=== PATIENT | female | born 1965 | race Caucasian/White ===

== ENCOUNTER 2018-12-04 22:27 | Inpatient (IN) | payer OTHER ==
[~2018-12-04] VITALS: Ht 172.7 cm; Wt 68.0 kg
[~2018-12-04 22:27] MED LIST: APOTEX; TRAM50TA3 PO
[2018-12-04] MEDS ORDERED: NITROGLYCERIN OINT 1GM/INCH UDPKT TD ONE (23:15)
[2018-12-04] MEDS ORDERED: ACETAMINOPHEN 325MG TABLET PO ONE (23:15)
[2018-12-04] MEDS ORDERED: CLONIDINE 0.2MG TABLET PO ONE (23:15)
[2018-12-04 23:19] LABS: BASOPHILS % 0.8 % (0.0-2.0); EOSINOPHILS % 2.6 % (0.0-5.0); HEMATOCRIT. 41.2 % (36.0-48.0); HEMOGLOBIN. 13.8 g/dL (12.0-16.0); LYMPHOCYTES % 34.2 % (20.0-50.0); MEAN CORPUSCULAR HEMOGLOBIN 29.6 pg (28.0-32.0); MEAN CORPUSCULAR VOLUME 88.6 fL (81.0-99.0); MEAN PLATELET VOLUME 8.9 fl (7.4-10.4); MONOCYTES % 6.9 % (2.0-8.0); NEUTROPHILS % 55.5 % (40.0-76.0); PLATELET 258 x1000/uL (130-400); RED BLOOD CELL COUNT 4.64 mill/uL (4.2-5.4); RED CELL DISTRIBUTION WIDTH 13.7 % (11.6-14.6)
[2018-12-04 23:22] LABS: CHLORIDE 106 mEq/L (98-107)
[2018-12-04 23:34] LABS: D-DIMER 0.89 mg/L FEU (<0.50); PARTIAL THROMBOPLASTIN TIME 28.9 sec (23.4-31.0)
[2018-12-05] MEDS ORDERED: ASPIRIN 325MG EC TABLET PO ONE (01:30)
[2018-12-05] MEDS ORDERED: ACETAMINOPHEN 325MG TABLET PO ONE (02:00)
[2018-12-05] MEDS ORDERED: ONDANSETRON HCL 4MG/2ML INJ IV ONE (02:00)
[2018-12-05] MEDS ORDERED: IOHEXOL-350 100 ML BOTTLE ONE (04:00)
[2018-12-05 10:11] LABS: LDL CHOLESTEROL 107 mg/dL (5-100)
[2018-12-05 10:13] LABS: HDL CHOLESTEROL 39 mg/dL (40-59)
[2018-12-05] MEDS ORDERED: ONDANSETRON HCL 4MG/2ML INJ IV PRN (10:30)
[2018-12-05] MEDS ORDERED: GUAIFENESIN-DM 200MG-20MG/10ML UDC PO PRN (10:30)
[2018-12-05 10:56] LABS: HEPATITIS B SURFACE ANTIGEN NEGATIVE
[2018-12-05 11:26] LABS: HEPATITIS A AB IGM NEGATIVE (NEGATIVE)
[2018-12-05] MEDS: ACETAMINOPHEN 325MG TABLET PO PRN (17:00)
[2018-12-06] MEDS: ACETAMINOPHEN 325MG TABLET PO PRN (03:45)
[2018-12-06 04:00] VITALS: BP 149/78
[2018-12-06 06:08] VITALS: BP 161/85
[2018-12-06 08:00] VITALS: BP 164/81
[2018-12-06] MEDS ORDERED: DIPH25TA23 PO (08:30)
[2018-12-06] MEDS ORDERED: LISI10TA5 PO (08:30)
[2018-12-06] MEDS ORDERED: ALBU18HF2 IH (08:31)
[2018-12-06 08:34] LABS: BASOPHILS % 0.6 % (0.0-2.0); EOSINOPHILS % 3.1 % (0.0-5.0); HEMATOCRIT. 40.8 % (36.0-48.0); HEMOGLOBIN. 13.8 g/dL (12.0-16.0); LYMPHOCYTES % 26.9 % (20.0-50.0); MEAN CORPUSCULAR HEMOGLOBIN 29.9 pg (28.0-32.0); MEAN CORPUSCULAR VOLUME 88.6 fL (81.0-99.0); MEAN PLATELET VOLUME 9.1 fl (7.4-10.4); MONOCYTES % 4.6 % (2.0-8.0); NEUTROPHILS % 64.8 % (40.0-76.0); PLATELET 232 x1000/uL (130-400); RED CELL DISTRIBUTION WIDTH 13.9 % (11.6-14.6)
[2018-12-06 08:41] LABS: CHLORIDE 106 mEq/L (98-107)
[2018-12-06] MEDS ORDERED: ASPIRIN 81MG TABLET PO SCH (09:00)
[2018-12-06] MEDS: CLONIDINE 0.1MG TABLET PO PRN (09:33)
[2018-12-06] MEDS ORDERED: IPRATROPIUM/ALBUTEROL 0.5-3(2.5)MG/3ML NEB HHN PRN (11:15)
[2018-12-06] MEDS: BENZONATATE 100MG CAPSULE PO SCH ×2 (11:40→18:36)
[2018-12-06] MEDS ORDERED: POTASSIUM CHLORIDE 20MEQ TABLET SR PO SCH (12:00)
[2018-12-06 14:00] VITALS: BP 141/78
[2018-12-06] MEDS: BUDESONIDE 0.5MG/2ML NEB HHN SCH (14:48)
[2018-12-06] MEDS: IPRATROPIUM/ALBUTEROL 0.5-3(2.5)MG/3ML NEB HHN SCH ×2 (14:48→19:59)
[2018-12-06 16:00] VITALS: BP 146/75
[2018-12-06 20:07] VITALS: BP 127/64
[2018-12-06] MEDS ORDERED: AMITRIPTYLINE 10MG TABLET PO SCH (21:00)
[2018-12-07 00:03] VITALS: BP 161/85
[2018-12-07] MEDS: BUDESONIDE 0.5MG/2ML NEB HHN SCH ×2 (01:23→09:48)
[2018-12-07] MEDS: IPRATROPIUM/ALBUTEROL 0.5-3(2.5)MG/3ML NEB HHN SCH ×3 (01:23→14:40)
[2018-12-07] MEDS: BENZONATATE 100MG CAPSULE PO SCH ×2 (02:41→12:01)
[2018-12-07 04:00] VITALS: BP 149/85
[2018-12-07 06:37] LABS: BASOPHILS % 0.6 % (0.0-2.0); EOSINOPHILS % 3.1 % (0.0-5.0); HEMATOCRIT. 40.1 % (36.0-48.0); HEMOGLOBIN. 13.5 g/dL (12.0-16.0); LYMPHOCYTES % 27.9 % (20.0-50.0); MEAN CORPUSCULAR HEMOGLOBIN 29.9 pg (28.0-32.0); MEAN CORPUSCULAR VOLUME 88.9 fL (81.0-99.0); MEAN PLATELET VOLUME 9.3 fl (7.4-10.4); NEUTROPHILS % 63.4 % (40.0-76.0); PLATELET 239 x1000/uL (130-400); RED BLOOD CELL COUNT 4.51 mill/uL (4.2-5.4); RED CELL DISTRIBUTION WIDTH 14.2 % (11.6-14.6)
[2018-12-07 07:29] LABS: CHLORIDE 108 mEq/L (98-107)
[2018-12-07 08:28] VITALS: BP 169/91
[2018-12-07] MEDS: CLONIDINE 0.1MG TABLET PO PRN (09:14)
[2018-12-07] MEDS: ACETAMINOPHEN 325MG TABLET PO PRN (09:14)
[2018-12-07 12:00] VITALS: BP 131/69
[2018-12-07 12:49] VITALS: BP 131/69
== END 2018-12-07 15:25 | disposition home or self-care (01) | DRG 199 ==
LOC: ER 22:27 → 6WST 12-05 07:07 → ENRESERV 12-06 02:45 → 6WST 12-06 04:00
PROVIDERS: ADMIT Internal Medicine; ATTEND Internal Medicine
DX: I16.0 Hypertensive urgency (principal); J96.00 Acute respiratory failure, unspecified whether with hypoxia or hypercapnia; M94.0 Chondrocostal junction syndrome [Tietze]; R04.2 Hemoptysis; I11.9 Hypertensive heart disease without heart failure; K76.0 Fatty (change of) liver, not elsewhere classified; I10 Essential (primary) hypertension; K76.9 Liver disease, unspecified; E87.6 Hypokalemia; R00.1 Bradycardia, unspecified; Z98.891 History of uterine scar from previous surgery; Z90.710 Acquired absence of both cervix and uterus; Z88.5 Allergy status to narcotic agent; Z79.899 Other long term (current) drug therapy
CPT/HCPCS: 36415; 70551; 71045; 71275; 80048; 80061; 83735; 83880; 84443; 84484; 85379; 86038; 86705; 86709; 86803; 87070; 87340; 87804; 93005; 93306; 96374; 97162; 99285; J2405; J7620; J7626; Q9967

== ENCOUNTER 2019-05-16 15:39 | Emergency (ER) | payer OTHER ==
[~2019-05-16] VITALS: Ht 152.4 cm; Wt 68.0 kg
[~2019-05-16 15:39] MED LIST changes: +ALBU18HF2 IH; -APOTEX; +DIPH25TA23 PO; +LISI10TA5 PO; -TRAM50TA3 PO
[2019-05-16] MEDS ORDERED: FAMOTIDINE 20MG/2ML VIAL IV STA (22:27)
[2019-05-16] MEDS ORDERED: KETOROLAC 30MG/ML VIAL IV STA (22:27)
[2019-05-16] MEDS ORDERED: ONDANSETRON HCL 4MG/2ML INJ IV STA (22:27)
[2019-05-16 23:06] LABS: BASOPHILS % 0.3 % (0.0-2.0); HEMATOCRIT. 41.6 % (36.0-48.0); HEMOGLOBIN. 14.3 g/dL (12.0-16.0); LYMPHOCYTES % 27.4 % (20.0-50.0); MEAN CORPUSCULAR HEMOGLOBIN 30.5 pg (28.0-32.0); MEAN CORPUSCULAR VOLUME 88.8 fL (81.0-99.0); MEAN PLATELET VOLUME 9.4 fl (7.4-10.4); MONOCYTES % 4.9 % (2.0-8.0); NEUTROPHILS % 65.4 % (40.0-76.0); PLATELET 269 x1000/uL (130-400); RED BLOOD CELL COUNT 4.69 mill/uL (4.2-5.4); RED CELL DISTRIBUTION WIDTH 13.9 % (11.6-14.6)
[2019-05-16 23:08] LABS: CHLORIDE 107 mEq/L (98-107); CLARITY URINE CLOUDY (CLEAR); COLOR URINE YELLOW (YELLOW); KETONES URINE TRACE (NEGATIVE); LEUKOCYTE ESTERASE URINE TRACE (NEGATIVE); NITRITE URINE NEGATIVE (NEGATIVE); OCCULT BLOOD URINE NEGATIVE (NEGATIVE); PH URINE 5.5 (4.5-8.0); PROTEIN URINE TRACE (NEGATIVE); SPECIFIC GRAVITY URINE 1.023 (1.005-1.030)
[2019-05-16 23:18] LABS: PROTHROMBIN TIME 10.6 sec (9.6-11.0)
[2019-05-17 00:59] VITALS: BP 164/96
== END 2019-05-17 01:00 | disposition home or self-care (01) ==
LOC: ER 15:39
DX: K29.00 Acute gastritis without bleeding (principal); N39.0 Urinary tract infection, site not specified; R79.89 Other specified abnormal findings of blood chemistry; I11.9 Hypertensive heart disease without heart failure; K76.9 Liver disease, unspecified; Z90.721 Acquired absence of ovaries, unilateral; Z90.710 Acquired absence of both cervix and uterus; Z98.890 Other specified postprocedural states; Z88.6 Allergy status to analgesic agent; Z79.899 Other long term (current) drug therapy
CPT/HCPCS: 36415; 76705; 80053; 81003; 83690; 85025; 85610; 96374; 96375; 99284; J1885; J2405; J3490

== ENCOUNTER 2021-05-08 09:13 | Emergency (ER) | payer OTHER ==
[~2021-05-08] VITALS: Ht 152.4 cm; Wt 62.0 kg
[~2021-05-08 09:13] MED LIST changes: +LISI10TA26 PO; -LISI10TA5 PO
[2021-05-08] MEDS ORDERED: ACETAMINOPHEN 325MG TABLET PO ONE (10:15)
[2021-05-08 10:25] LABS: EOSINOPHILS % 1.9 % (0.0-5.0); HEMATOCRIT. 45.1 % (36.0-48.0); HEMOGLOBIN. 15.1 g/dL (12.0-16.0); LYMPHOCYTES % 23.1 % (20.0-50.0); MEAN CORPUSCULAR HEMOGLOBIN 29.2 pg (28.0-32.0); MEAN CORPUSCULAR VOLUME 87.2 fL (81.0-99.0); MEAN PLATELET VOLUME 9.2 fl (7.4-10.4); MONOCYTES % 3.6 % (2.0-8.0); NEUTROPHILS % 70.4 % (40.0-76.0); PLATELET 263 x1000/uL (130-400); RED BLOOD CELL COUNT 5.17 mill/uL (4.2-5.4)
[2021-05-08 10:30] LABS: CHLORIDE 107 mEq/L (98-107)
[2021-05-08 12:00] LABS: CLARITY URINE CLOUDY (CLEAR); COLOR URINE DARK YELLOW (YELLOW); KETONES URINE TRACE (NEGATIVE); LEUKOCYTE ESTERASE URINE 1+ (NEGATIVE); NITRITE URINE NEGATIVE (NEGATIVE); OCCULT BLOOD URINE NEGATIVE (NEGATIVE); PROTEIN URINE 1+ (NEGATIVE); SPECIFIC GRAVITY URINE 1.025 (1.005-1.030)
[2021-05-08] MEDS ORDERED: TOPUD PO (12:08)
[2021-05-08 12:21] VITALS: BP 114/86
== END 2021-05-08 12:23 | disposition home or self-care (01) ==
LOC: ER 09:13
DX: Z20.822 Contact with and (suspected) exposure to COVID-19 (principal); J45.909 Unspecified asthma, uncomplicated; E78.00 Pure hypercholesterolemia, unspecified; I10 Essential (primary) hypertension; Z88.6 Allergy status to analgesic agent; Z98.890 Other specified postprocedural states
CPT/HCPCS: 36415; 76705; 80053; 81003; 83690; 85025; 85610; 99284; C9803; U0003; U0005

== ENCOUNTER 2021-08-01 11:29 | Emergency (ER) | payer OTHER ==
[~2021-08-01] VITALS: Ht 152.4 cm; Wt 65.0 kg
[~2021-08-01 11:29] MED LIST changes: +TOPUD PO
[2021-08-01 11:33] VITALS: BP 170/96
[2021-08-01] MEDS ORDERED: ACETAMINOPHEN 325MG TABLET PO ONE (12:00)
== END 2021-08-01 13:23 | disposition home or self-care (01) ==
LOC: ER 11:29
DX: H11.30 Conjunctival hemorrhage, unspecified eye (principal); G43.909 Migraine, unspecified, not intractable, without status migrainosus; R05.9 Cough, unspecified; J45.909 Unspecified asthma, uncomplicated; E11.9 Type 2 diabetes mellitus without complications; E78.00 Pure hypercholesterolemia, unspecified; I10 Essential (primary) hypertension; Z88.6 Allergy status to analgesic agent; Z90.710 Acquired absence of both cervix and uterus; Z98.890 Other specified postprocedural states
CPT/HCPCS: 99282

== ENCOUNTER 2022-10-31 14:02 | Emergency (ER) | payer OTHER ==
[~2022-10-31] VITALS: Ht 152.4 cm; Wt 76.0 kg
[2022-10-31] MEDS ORDERED: MECLIZINE 25MG TABLET PO ONE (15:00)
[2022-10-31] MEDS ORDERED: SODIUM CHLORIDE 0.9% 1,000 ML IV ONE (15:00)
[2022-10-31 15:42] LABS: BASOPHILS % 0.7 % (0.0-2.0); EOSINOPHILS % 1.9 % (0.0-5.0); HEMATOCRIT. 41.3 % (36.0-48.0); LYMPHOCYTES % 22.6 % (20.0-50.0); MEAN CORPUSCULAR HEMOGLOBIN 29.2 pg (28.0-32.0); MEAN CORPUSCULAR VOLUME 86.2 fL (81.0-99.0); MEAN PLATELET VOLUME 10.4 fl (7.4-10.4); MONOCYTES % 4.2 % (2.0-8.0); NEUTROPHILS % 70.6 % (40.0-76.0); PLATELET 204 x1000/uL (130-400); RED CELL DISTRIBUTION WIDTH 13.6 % (11.6-14.6)
[2022-10-31 15:57] LABS: CHLORIDE 99 mEq/L (98-107)
[2022-10-31 16:06] LABS: BETA HYDROXYBUTYRATE 0.1 mMol/L (0.0-0.3)
[2022-10-31 16:25] LABS: CLARITY URINE CLEAR (CLEAR); COLOR URINE YELLOW (YELLOW); KETONES URINE NEGATIVE (NEGATIVE); LEUKOCYTE ESTERASE URINE NEGATIVE (NEGATIVE); NITRITE URINE NEGATIVE (NEGATIVE); OCCULT BLOOD URINE TRACE (NEGATIVE); PH URINE 6.5 (4.5-8.0); PROTEIN URINE NEGATIVE (NEGATIVE); SPECIFIC GRAVITY URINE 1.038 (1.005-1.030); UROBILINOGEN URINE 0.2 E.U./dL (0.2-1.0)
[2022-10-31] MEDS ORDERED: IOHEXOL-350 100 ML BOTTLE ONE (17:12)
[2022-10-31] MEDS ORDERED: MECL-159 MT (18:57)
[2022-10-31 19:00] VITALS: BP 170/100
== END 2022-11-01 00:24 | disposition home or self-care (01) ==
LOC: ER 14:02
DX: E11.65 Type 2 diabetes mellitus with hyperglycemia (principal); R42 Dizziness and giddiness; R53.1 Weakness; I10 Essential (primary) hypertension; J45.909 Unspecified asthma, uncomplicated; E78.00 Pure hypercholesterolemia, unspecified; Z90.710 Acquired absence of both cervix and uterus; Z88.8 Allergy status to other drugs, medicaments and biological substances
CPT/HCPCS: 36415; 70496; 70498; 71045; 80053; 81003; 82010; 82962; 83690; 83880; 84484; 85025; 93005; 96360; 99285; J7030; J8597; Q9967; Z7610

== ENCOUNTER 2023-04-30 14:47 | Emergency (ER) | payer OTHER ==
[~2023-04-30] VITALS: Ht 162.6 cm; Wt 86.0 kg
[~2023-04-30 14:47] MED LIST changes: +MECL-159 MT
[2023-04-30 14:49] VITALS: O2SAT 98
[2023-04-30 15:25] LABS: BASOPHILS % 0.6 % (0.0-2.0); EOSINOPHILS % 2.1 % (0.0-5.0); HEMATOCRIT. 38.6 % (36.0-48.0); LYMPHOCYTES % 29.1 % (20.0-50.0); MEAN CORPUSCULAR HEMOGLOBIN 29.1 pg (28.0-32.0); MEAN CORPUSCULAR HGB CONC 33.6 g/dL (31.0-37.0); MEAN CORPUSCULAR VOLUME 86.4 fL (81.0-99.0); MEAN PLATELET VOLUME 9.4 fl (7.4-10.4); MONOCYTES % 5.4 % (2.0-8.0); NEUTROPHILS % 62.8 % (40.0-76.0); PLATELET 234 x1000/uL (130-400); RED BLOOD CELL COUNT 4.47 mill/uL (4.2-5.4); RED CELL DISTRIBUTION WIDTH 13.3 % (11.6-14.6); WHITE BLOOD COUNT 8.3 x1000/uL (4.5-11.0)
[2023-04-30 15:38] LABS: CHLORIDE 103 mEq/L (98-107); INDEX HEMOLYSI 2 (1-3); INDEX ICTERIC 1 (1-4); INDEX LIPEMIC 1 (1-3); POTASSIUM 3.8 mEq/L (3.5-5.1); SODIUM 136 mEq/L (136-145)
[2023-04-30] MEDS ORDERED: HYDRALAZINE 20MG/ML VIAL IV ONE (16:45)
[2023-04-30] MEDS ORDERED: LABETALOL 5MG/ML SYR 20 MG/4 ML SYRINGE IV ONE (16:45)
[2023-04-30] MEDS ORDERED: METOCLOPRAMIDE HCL 10MG/2ML VIAL IV ONE (16:45)
[2023-04-30] MEDS ORDERED: ACETAMINOPHEN 325MG TABLET PO ONE (16:45)
[2023-04-30 17:03] LABS: CARBON DIOXIDE 29 mEq/L (21-32); GLUCOSE 313 mg/dL (70-105)
[2023-04-30 17:04] LABS: ALANINE AMINOTRANSFERASE 39 IU/L (13-61); ALBUMIN 3.2 g/dL (3.4-5.0); ASPARTATE AMINOTRANSFERASE 20 IU/L (15-37); BILIRUBIN TOTAL 0.6 mg/dL (0.1-1.0); CALCIUM 9.2 mg/dL (8.5-10.1); CREATININE 0.6 mg/dL (0.6-1.3); PROTEIN TOTAL 7.6 g/dL (6.0-8.3); UREA NITROGEN BLOOD 17 mg/dL (7-21)
[2023-04-30 17:05] LABS: NT PRO B-TYPE NATRIURETIC PEP 66 pg/mL (5-125); TROPONIN I HIGH SENSITIVITY 4 ng/L (<54)
[2023-04-30 17:26] VITALS: TEMP 98.4
[2023-04-30] MEDS ORDERED: KETOROLAC 15MG/ML VIAL IV ONE (17:45)
[2023-04-30] MEDS ORDERED: CYCL10TA21 MT (18:11)
[2023-04-30] MEDS ORDERED: ACET-2708 MT (18:11)
[2023-04-30 18:14] VITALS: BP 162/87; PULSE 70; RESP 18
== END 2023-04-30 18:38 | disposition home or self-care (01) ==
LOC: ER 14:53
DX: I10 Essential (primary) hypertension (principal); E78.00 Pure hypercholesterolemia, unspecified; J45.909 Unspecified asthma, uncomplicated; E11.9 Type 2 diabetes mellitus without complications; Z88.5 Allergy status to narcotic agent; Z98.890 Other specified postprocedural states
CPT/HCPCS: 99285; 96374; 70450; 71045; 96375; 80053; 83880; 85025; 84484; 36415; 93005; J0360; J1885; J3490; J2765

== ENCOUNTER 2023-09-08 11:11 | Emergency (ER) | payer OTHER ==
[~2023-09-08] VITALS: Ht 160 cm; Wt 56.7 kg
[~2023-09-08 11:11] MED LIST changes: +ACET-2708 MT; +CYCL10TA21 MT; -MECL-159 MT; +MECL-299 MT
[2023-09-08 11:16] VITALS: O2SAT 100
[2023-09-08] MEDS ORDERED: SODIUM CHLORIDE 0.9% 1,000 ML IV ONE (11:45)
[2023-09-08 12:05] LABS: BG BASE EXCESS -0.5 mmol/L (-2.0-2.0); BG CARBOXYHEMOGLOBIN 0.8 % (0.5-1.5); BG DEOXYHEMOGLOBIN 2.8 % (0.0-5.0); BG HCO3 ACT 22.1 mmol/L (22.0-26.0); BG METHEMOGLOBIN 0.2 % (0.0-1.5); BG OXYGEN SATURATION 97.2 % (92.0-98.5); BG OXYHEMOGLOBIN 96.2 % (94.0-97.0); BG PCO2 31.2 mmHg (35.0-45.0); BG PH 7.469 (7.350-7.450); BG PO2 79.5 mmHg (75.0-100.0); BG SAMPLE SITE RIGHT BRACHIAL; BG TOTAL HEMOGLOBIN 15.3 g/dL (12.0-18.0); BG VENT MODE ROOM AIR
[2023-09-08 12:19] LABS: BASOPHILS % 0.6 % (0.0-2.0); EOSINOPHILS % 1.9 % (0.0-5.0); HEMATOCRIT. 43.4 % (36.0-48.0); HEMOGLOBIN. 14.2 g/dL (12.0-16.0); LYMPHOCYTES % 22.8 % (20.0-50.0); MEAN CORPUSCULAR HEMOGLOBIN 28.9 pg (28.0-32.0); MEAN CORPUSCULAR HGB CONC 32.6 g/dL (31.0-37.0); MEAN CORPUSCULAR VOLUME 88.6 fL (81.0-99.0); MEAN PLATELET VOLUME 9.9 fl (7.4-10.4); MONOCYTES % 4.4 % (2.0-8.0); NEUTROPHILS % 70.3 % (40.0-76.0); PLATELET 196 x1000/uL (130-400); RED CELL DISTRIBUTION WIDTH 13.1 % (11.6-14.6); WHITE BLOOD COUNT 7.7 x1000/uL (4.5-11.0)
[2023-09-08 12:26] LABS: ALANINE AMINOTRANSFERASE 41 IU/L (10-49); ALBUMIN 3.9 g/dL (3.2-4.8); ASPARTATE AMINOTRANSFERASE 36 IU/L (<34); BILIRUBIN TOTAL 0.4 mg/dL (0.1-1.0); CALCIUM 9.2 mg/dL (8.7-10.4); CARBON DIOXIDE 27 mEq/L (21-32); CHLORIDE 101 mEq/L (98-107); CREATININE 0.7 mg/dL (0.6-1.0); POTASSIUM 3.9 mEq/L (3.5-5.1); PROTEIN TOTAL 7.7 g/dL (6.0-8.3); SODIUM 134 mEq/L (136-145); UREA NITROGEN BLOOD 11 mg/dL (9-23)
[2023-09-08 12:27] LABS: ETHANOL BLOOD < 10 mg/dL (<10); GLUCOSE 404 mg/dL (70-105); TROPONIN I HIGH SENSITIVITY < 4 ng/L (3.0-34)
[2023-09-08 12:33] LABS: PROTHROMBIN TIME 10.6 sec (9.6-11.0)
[2023-09-08] MEDS ORDERED: INSULIN REGULAR (HUMULIN R) 300UNITS/3ML VIAL SUBCUT NR (12:45)
[2023-09-08] MEDS ORDERED: HYDRALAZINE 20MG/ML VIAL IV ONE (12:45)
[2023-09-08 14:13] LABS: CLARITY URINE CLEAR (CLEAR); COLOR URINE YELLOW (YELLOW); SPECIFIC GRAVITY URINE 1.015 (1.005-1.030)
[2023-09-08 14:14] LABS: GLUCOSE URINE 3+ (NEGATIVE); KETONES URINE NEGATIVE (NEGATIVE); LEUKOCYTE ESTERASE URINE NEGATIVE (NEGATIVE); NITRITE URINE NEGATIVE (NEGATIVE); OCCULT BLOOD URINE NEGATIVE (NEGATIVE); PH URINE 6.5 (4.5-8.0); PROTEIN URINE NEGATIVE (NEGATIVE); UROBILINOGEN URINE 0.2 E.U./dL (0.2-1.0)
[2023-09-08 14:26] LABS: SQUAMOUS EPITHELIAL CELL URINE 3+ /lpf (RARE/1+)
[2023-09-08 14:27] LABS: BACTERIA URINE TRACE; WBC URINE 0-2 /hpf (0-2)
[2023-09-08 14:28] LABS: RBC URINE NONE SEEN /hpf (0-2); YEAST URINE FEW
[2023-09-08] MEDS ORDERED: ASPIRIN 81MG TABLET PO ONE (17:15)
[2023-09-08] MEDS ORDERED: CLOPIDOGREL 75MG TABLET PO ONE (17:15)
[2023-09-08 18:17] LABS: BETA HYDROXYBUTYRATE < 0.1 mMol/L (0.0-0.3)
[2023-09-08 20:41] VITALS: BP 157/79; PULSE 89; RESP 18; TEMP 98.3
== END 2023-09-08 22:04 | disposition short-term general hospital (02) ==
LOC: ER 11:11 → CANBEDREQ 09-10 15:52
DX: R51.9 Headache, unspecified (principal); R20.0 Anesthesia of skin; J45.909 Unspecified asthma, uncomplicated; E11.9 Type 2 diabetes mellitus without complications; E78.00 Pure hypercholesterolemia, unspecified; I10 Essential (primary) hypertension; Z98.890 Other specified postprocedural states; Z90.710 Acquired absence of both cervix and uterus; Z88.5 Allergy status to narcotic agent
CPT/HCPCS: 80053; 81003; 82010; 80320; 82962; 83690; 85025; 85610; 84484; 36415; 71045; 70450; 70553; 82805; 82375; 96361; 96372; 96374; 99291; 36600; Z7610 ×5; J0360; J1815; J7030; G0480

== ENCOUNTER 2025-08-24 09:33 | Emergency (ER) | payer OTHER ==
[~2025-08-24] VITALS: Ht 160 cm; Wt 70.0 kg
[2025-08-24 10:05] VITALS: O2SAT 100
[2025-08-24] MEDS: ACETAMINOPHEN 325MG TABLET PO ONE (11:10)
[2025-08-24] MEDS ORDERED: IBUP-1455 MT (11:59)
[2025-08-24 12:15] VITALS: BP 170/71; PULSE 70; RESP 17; TEMP 36.8; O2SAT 99
== END 2025-08-24 12:16 | disposition home or self-care (01) ==
LOC: ER 09:33
DX: S69.91XA Unspecified injury of right wrist, hand and finger(s), initial encounter (principal); M25.551 Pain in right hip; I10 Essential (primary) hypertension; E11.9 Type 2 diabetes mellitus without complications; J45.909 Unspecified asthma, uncomplicated; E78.00 Pure hypercholesterolemia, unspecified; Z79.899 Other long term (current) drug therapy; Z90.710 Acquired absence of both cervix and uterus; Z88.5 Allergy status to narcotic agent; W19.XXXA Unspecified fall, initial encounter; Y93.89 Activity, other specified; Y92.89 Other specified places as the place of occurrence of the external cause; Y99.8 Other external cause status
CPT/HCPCS: 73130; 73502; 99284